=== PATIENT | male | born 1955 | race Caucasian/White ===

== ENCOUNTER 2018-09-02 17:28 | Observation (INO) | payer OTHER, SELFPAY ==
[2018-09-02] VITALS (12 sets, daily range): BP systolic 88–150; BP diastolic 54–92; PULSE 61–91; RESP 12–18; TEMP 36.4–37.1; O2SAT 92–100; BMI 32.3
--- NOTE | 2018-09-02 | PATH_ITS ---
[facility] Accession Number: [id number] . 01 Material submitted: . appendix - APPENDIX . 02 Diagnosis: Appendix, Appendectomy: Acute suppurative appendicitis with serositis. No evidence of dysplasia or malignancy. MRV/09/05/2018 . 02 Electronically signed: . Loan Wilkerson MD, Pathologist NPI- [id number] . 01 Gross description: . Received in formalin, labeled appendix, is an intact appendix (length-11.2 cm, diameter-1.5 cm) with pale carter-ibrahim smooth shiny serosa and attached mesoappendix (up to 2.2 cm in depth). The resection margin is received opened. The lumen contains carter-ibrahim solid paste-like material. The wall is up to 0.2 cm thick. No nodules, masses or lesions are identified. The resection margin is inked black. Section code: (A1) resection margin en face and three additional customer support representative sections; (A2) two customer support representative serial sections; (A3) one-half of the bivalved tip. ([id number]) /MRV . 02 Pathologist provided ICD-10: K35.80 . 02 CPT . 882154 Performed at: 01 [facility] [address] [facility], [place], [place] [id number] MD William Lagos MD Phone: [phone] Performed at: 02 [facility] [address] [place], [place] [id number] MD Loan Wilkerson MD Phone: [phone]
[2018-09-02 17:59] LABS: Add Manual Diff / Slide Review NO; Basophils Absolute Auto 100 /uL (0-100); Basophils Percent Auto 0.4 % (0-2); Eosinophils Absolute Auto 0 /uL (0-450); Eosinophils Percent Auto 0.1 % (2-4); Hematocrit 42.2 % (41-53); Hemoglobin 14.4 g/dL (13.5-17.5); Lymphocytes Absolute Auto 900 /uL (1100-4500); Lymphocytes Percent Auto 5.9 % (25-40); Mean Corpuscular HGB Conc 34.1 % (30-36); Mean Corpuscular Hemoglobin 30.7 PG (26-34); Monocytes Absolute Auto 1100 /uL (0-900); Monocytes Percent Auto 7.3 % (3-14); Neutrophils Absolute Auto 13000 /uL (1500-7000); Neutrophils Percent Auto 86.3 % (50-75); Platelet Count 293 X10^3/uL (150-400); Red Blood Cell Count 4.69 X10^6/uL (4.5-5.9); Red Cell Distribution Width 13.3 % (11.6-14.8)
--- NOTE | 2018-09-02 18:00 | ED_ITS ---
HPI - Abdominal Pain General Chief Complaint: Abdominal Pain Stated Complaint: constant RLQ pain since 5 am Time Seen by Provider: 09/02/18 18:00 Source: patient Mode of arrival: ambulatory Limitations: no limitations History of Present Illness HPI narrative: Otherwise healthy 62-year-old male here for evaluation of abdominal pain. Patient states that earlier today he started to have generalized abdominal pain. He stated lasted several hours. Had episodes where he felt like he had to have a bowel movement but could not. Also had several episodes of vomiting. He states the pain then went away however returned a short time later localized in the right lower quadrant. Has not had any appetite. He states that the drive here to the emergency department was painful over time he had a bump. No fevers. No prior abdominal surgeries. No testicular pain. Related Data Home Medications Medication Instructions Recorded Confirmed pantoprazole [Protonix] 40 mg PO DAILY 09/02/18 09/02/18 Previous Rx's Medication Instructions Recorded bupropion HCl [Wellbutrin SR] 150 mg PO QDAY #30 tab 09/07/16 Allergies Allergy/AdvReac Type Severity Reaction Status Date / Time No Known Drug Allergies Allergy Verified 09/02/18 17:37 Review of Systems Constitutional Denies fever(s) Cardiovascular Denies chest pain and Denies dyspnea Respiratory Denies dyspnea Gastrointestinal Gastrointestinal: Denies change in stool character, Reports diarrhea and Reports vomiting Genitourinary Denies dysuria, Denies flank pain and Denies testicular pain Musculoskeletal Denies myalgias and Denies arthralgias Integumentary/Breasts Denies rash Neurologic Denies behavioral changes Psychiatric Denies behavioral changes Hematologic/Lymphatic Denies easy bleeding and Denies easy bruising [facility] Medical History Patient denies medical problems (Acute) Surgical History Status post colonoscopy Status post endoscopy Social History household members: spouse Smoking Status: Former smoker alcohol intake: current Social History household members: spouse Smoking Status: Former smoker alcohol intake: current Exam Initial Vital Signs Initial Vital Signs: Vital Signs Temperature 98.5 F 09/02/18 17:33 Pulse Rate 91 H 09/02/18 17:33 Respiratory Rate 16 09/02/18 17:33 Blood Pressure 150/92 H 09/02/18 17:33 Pulse Oximetry 100 09/02/18 17:33 Const General: cooperative, comfortable, well developed, well groomed and No acute distress Orientation: alert, awake and oriented x3 HENMT Head: normal to inspection and normocephalic Resp Effort & Inspection: normal respiratory effort Auscultation: clear to auscultation bilaterally Cardio Rate: regular rate Rhythm: regular rhythm GI Inspection: non-distended Palpation: soft, No firm and tender (Right lower quadrant with rebound and guarding) External: circumcised Penis: normal penis Scrotum: scrotum normal and cremasteric reflex present Testes: normal and testicular lie normal Skin Lesions: no lesions Rashes: no rashes Neuro General: alert, awake and oriented x3 Cognition: normal cognition Speech: speech normal Extrem General: normal to inspection and capillary refill normal Psych Appearance: grossly normal and well kempt Course Orders Ordered: ED Orders 09/02/18 17:52 Complete Blood Count AUTO DIFF Stat Comprehensive Metabolic Panel Stat Lipase Stat Partial Thromboplastin Time Stat Prothrombin Time INR Stat 09/02/18 18:09 CT abdomen pelvis w con Stat 09/02/18 18:49 EKG-12 Lead Stat 09/02/18 21:35 Wound Culture and Gram Stain Routine Acetaminophen (Tylenol) 650 mg PO Q6HR PRN PRN Reason: As Needed for Fever/Mild Pain Enoxaparin Sodium (Lovenox) 40 mg SUBCUT DAILY [facility] Lactated Ringer's (Lactated Ringers) 1,000 mls @ 84 mls/hr IV NOW ONE Stop: 09/03/18 08:35 Last Admin: 09/02/18 20:35 Dose: 84 mls/hr Dextrose/Sodium Chloride (Dextrose 5%-0.45% Ns) 1,000 mls @ 100 mls/hr IV CONT [facility] Ketorolac Tromethamine (Toradol) 15 mg IV Q6H [facility] Stop: 09/07/18 21:26 Morphine Sulfate (Morphine) 2 mg IV Q4HR PRN PRN Reason: Pain, Moderate (4-6) Oxycodone/Acetaminophen (Percocet 5/325) 1 tab PO Q4HR PRN PRN Reason: Pain, Moderate (4-6) Pantoprazole Sodium (Protonix) 40 mg PO DAILY [facility] Ranitidine HCl (Zantac) 150 mg PO BID NIRU Discontinued Medications Bacitracin (Bacitracin) 50,000 unit IRR NOW ONE Stop: 09/02/18 20:58 Last Admin: 09/02/18 20:58 Dose: 50,000 unit Bupivacaine HCl/Epinephrine Bitart (Sensorcaine 0.5% W/ Epi (Pf)) 30 ml INJ NOW ONE Stop: 09/02/18 20:58 Last Admin: 09/02/18 20:58 Dose: 20 ml Fentanyl (Sublimaze) 50 mcg IV Q5MIN PRN PRN Reason: Pain, Moderate (4-6) Last Admin: 09/02/18 21:50 Dose: 50 mcg Admin: 09/02/18 21:45 Dose: 50 mcg Hydromorphone HCl (Dilaudid) 0.5 mg IV Q5MIN PRN PRN Reason: Pain, Moderate (4-6) Sodium Chloride (Normal Saline 0.9%) 1,000 mls @ 1,000 mls/hr IV BOLUS ONE Stop: 09/02/18 19:09 Last Infusion: 09/02/18 19:32 Dose: 0 mls/hr Admin: 09/02/18 18:46 Dose: 1,000 mls/hr Piperacillin/Tazobactam/Dextrose (Zosyn) 3.375 gm in 50 mls @ 100 mls/hr IV NOW ONE Stop: 09/02/18 19:33 Last Infusion: 09/02/18 20:28 Dose: 0 mls/hr Infusion: 09/02/18 19:51 Dose: 100 mls/hr Admin: 09/02/18 19:32 Dose: 100 mls/hr Sodium Chloride (Normal Saline 0.9%) 1,000 mls @ 125 mls/hr IV CONT NIRU Last Infusion: 09/02/18 19:50 Dose: 125 mls/hr Admin: 09/02/18 19:30 Dose: 125 mls/hr Acetaminophen (Ofirmev) 1,000 mg in 100 mls @ 400 mls/hr IV NOW ONE Stop: 09/02/18 21:28 Last Infusion: 09/02/18 21:15 Dose: 0 mls/hr Admin: 09/02/18 21:08 Dose: 400 mls/hr Metoclopramide HCl (Reglan) 10 mg IV NOW PRN PRN Reason: Nausea And Vomiting Neomycin/Polymyxin/Bacitracin (Neosporin) 1 each TOP NOW ONE Stop: 09/02/18 20:58 Last Admin: 09/02/18 20:59 Dose: 1 each Ondansetron HCl (Zofran) 4 mg IV NOW PRN PRN Reason: Nausea And Vomiting Ondansetron HCl (Zofran) 4 mg IV Q4HR PRN PRN Reason: Nausea And Vomiting Oxycodone HCl (Percolone) 5 mg PO Q30MIN PRN PRN Reason: Mild or moderate pain Vital Signs - 8 hr 09/02/18 17:33 09/02/18 19:12 09/02/18 21:25 Temperature 98.5 F 98.6 F Pulse Rate 91 H 79 65 Respiratory Rate 16 18 12 Blood Pressure 150/92 H 88/58 L Blood Pressure [Left Arm] 128/74 Pulse Oximetry 100 95 92 09/02/18 21:30 09/02/18 21:35 09/02/18 21:45 Temperature 98.6 F 98.6 F 98.6 F Pulse Rate 64 74 70 Respiratory Rate 12 12 18 Blood Pressure 89/57 L 98/64 105/68 Blood Pressure [Left Arm] Pulse Oximetry 96 94 93 09/02/18 21:55 09/02/18 22:00 09/02/18 22:05 Temperature 98.6 F 98.7 F 98.6 F Pulse Rate 72 76 72 Respiratory Rate 18 18 18 Blood Pressure 100/54 L 102/56 L 113/63 Blood Pressure [Left Arm] Pulse Oximetry 93 96 96 09/02/18 22:15 Temperature 97.6 F Pulse Rate 69 Respiratory Rate 14 Blood Pressure 125/73 Blood Pressure [Left Arm] Pulse Oximetry 96 MDM - Abdominal Pain Lab Data Attestation: I reviewed the patient's lab results. Result diagrams: 09/02/18 17:52 09/02/18 17:52 Lab Results 09/02/18 09/02/18 09/02/18 Range/Units 17:52 17:52 17:52 WBC 15.0 H (4.5-11.0) X10^3/uL RBC 4.69 (4.5-5.9) X10^6/uL Hgb 14.4 (13.5-17.5) g/dL Hct 42.2 (41-53) % MCV 90.0 (80-100) fL MCH 30.7 (26-34) PG MCHC 34.1 (30-36) % RDW 13.3 (11.6-14.8) % Plt Count 293 (150-400) X10^3/uL Neut % (Auto) 86.3 H (50-75) % Lymph % (Auto) 5.9 L (25-40) % [place] % (Auto) 7.3 (3-14) % Eos % (Auto) 0.1 L (2-4) % Baso % (Auto) 0.4 (0-2) % Neut # (Auto) 41810 H (9660-0209) /uL Lymph # (Auto) 900 L (6943-1755) /uL [place] # (Auto) 1100 H (0-900) /uL Eos # (Auto) 0 (0-450) /uL Baso # (Auto) 100 (0-100) /uL PT 12.3 (10.1-12.7) SECONDS INR 1.1 (0.9-1.3) APTT 34 (26.4-36.2) SECONDS Sodium 138 (137-145) mmol/L Potassium 3.8 (3.4-5.1) mmol/L Chloride 100 (98-107) mmol/L Carbon Dioxide 28 (22-32) mmol/L BUN 12 (9-20) mg/dL Creatinine 0.90 (0.66-1.25) mg/dL Estimated GFR > 60.0 (>60) mL/min BUN/Creatinine Ratio 13.3 (6-22) Glucose 105 (80-110) mg/dL Calcium 9.2 (8.4-10.2) mg/dL Total Bilirubin 0.8 (0.2-1.3) mg/dL AST 29 (17-59) IU/L ALT 40 (21-72) IU/L Alkaline Phosphatase 64 (38-126) U/L Total Protein 7.5 (6.3-8.2) g/dL Albumin 4.7 (3.5-5.0) g/dL Globulin 2.8 (1.7-4.1) g/dL Albumin/Globulin Ratio 1.7 (1.0-2.8) Lipase 33 (23-300) U/L Point of care testing: Urine Dip Bedside Urine Glucose Negative Bedside Urine Bilirubin - Negative Bedside Urine Ketone - Negative Urine Specific [place] 1.015 Bedside Urine Occult Blood - Negative Bedside Urine pH 6.0 Bedside Urine Protein - Negative Bedside Urine Urobilinogen - Negative Bedside Urine Nitrite - Negative Bedside Urine Leukocytes - Negative Esterase Imaging Data CT scan - abdomen: Radiologist's impression: [address] [address] [address] Scan Report Signed Patient: [facility]#: [id number] : 6Acct:[id number] Age/Sex: 62 / MDate of Service: 09/02/18 Loc: ED Accession Number: [id number] Procedure: CT abdomen pelvis w con Ordering Provider: Kaleb Ochoa D.O. PROCEDURE: CT ABDOMEN PELVIS W CON INDICATIONS: Right-sided abdominal pain concern for appy TECHNIQUE: After the administration of intravenous contrast, 5 mm thick sections acquired from the diaphragm to the symphysis. 5 mm coronal and sagittal reformats were acquired. For radiation dose reduction, the following was used: automated exposure control, adjustment of mA and/or kV according to patient size. COMPARISON: None. FINDINGS: Image quality: Excellent. ABDOMEN: Lung bases: Lung bases are clear. Heart size is normal. Solid organs: Mild hepatic fatty infiltration. Liver is normal in size and enhancement. Gallbladder contains gallstones. Biliary system is non dilated. Pancreas enhances normally. Spleen is normal in size and enhancement. No adrenal nodules. Kidneys demonstrate normal size and enhancement, without hydronephrosis. Peritoneum and bowel: Appendix is distended measuring up to 1 cm in diameter. There is increased appendiceal wall enhancement and periappendiceal stranding consistent with acute appendicitis. There is a trace amount of free fluid in the right lower quadrant. No fluid collections to suggest abscess. No free air. Bowel loops demonstrate normal caliber. A few colonic diverticular noted. Nodes and vessels: No retroperitoneal or mesenteric adenopathy by size criteria. Aorta and inferior vena cava are normal in size. Miscellaneous: Tiny fat-containing umbilical hernia is noted. PELVIS: Genitourinary: Bladder wall thickness is normal. Miscellaneous: No inguinal hernias or adenopathy. Bones: No suspicious bony lesions. No vertebral body compression fractures. IMPRESSION: 1. Acute uncomplicated appendicitis. 2. Cholelithiasis. 3. Mild diverticulosis without active diverticulitis. Dictated by: Chris Painter M.D. on 09/02/2018 at 18:46 Approved by: Chris Painter M.D. on 09/02/2018 at 18:51 ECG Data Attestation: I personally reviewed and interpreted this ECG as follows: Prior ECG tracings: not available for review Interpretation: Sinus rhythm Ventricular rate is 76 Normal axis Normal QRS Normal QTC No ST T wave changes MDM Narrative Medical decision making narrative: Patient history and physical exam consistent with appendicitis. Also has a leukocytosis. CT scan confirmed appendicitis. Discussed the case with Dr. De Jesus which General surgery who will take the patient to the operating room. Antibiotics started per his request. Informed the patient of his diagnosis. He expressed understanding and agreement plan. Discharge Plan Departure Patient Disposition: Admitted as Observation Clinical Impression: Acute appendicitis Qualifiers: Acute appendicitis type: unspecified acute appendicitis type Qualified Code(s): K35.80 - Unspecified acute appendicitis Discharge Date/Time: 09/02/18 19:51 Interventions: ED Discharge Assessment Last Done: 09/02/18 19:47 Admit Date/Time: 09/02/18 19:08 Admit Provider: Jp De Jesus
[2018-09-02 18:05] LABS: INR 1.1 (0.9-1.3); Prothrombin Time 12.3 SECONDS (10.1-12.7)
[2018-09-02 18:07] LABS: PTT Partial Thromboplastin Tim 34 SECONDS (26.4-36.2)
[2018-09-02 18:09] LABS: Alanine Aminotransferase 40 IU/L (21-72); Albumin 4.7 g/dL (3.5-5.0); Albumin Globulin Ratio 1.7 (1.0-2.8); Alkaline Phosphatase 64 U/L (38-126); Aspartate Aminotransferase 29 IU/L (17-59); BUN Creatinine Ratio 13.3 (6-22); Bilirubin Total 0.8 mg/dL (0.2-1.3); Blood Urea Nitrogen 12 mg/dL (9-20); Calcium 9.2 mg/dL (8.4-10.2); Carbon Dioxide 28 mmol/L (22-32); Chloride 100 mmol/L (98-107); Estimated Glomerular Filt Rate > 60.0 mL/min (>60); Globulin 2.8 g/dL (1.7-4.1); Glucose 105 mg/dL (80-110); HEMOLYSIS < 15 (0-50); Lipase 33 U/L (23-300); Potassium 3.8 mmol/L (3.4-5.1); Sodium 138 mmol/L (137-145); Total Protein 7.5 g/dL (6.3-8.2)
--- NOTE | 2018-09-02 18:09 | DI.CT.S_ITS ---
PROCEDURE: CT ABDOMEN PELVIS W CON INDICATIONS: Right-sided abdominal pain concern for appy TECHNIQUE: After the administration of intravenous contrast, 5 mm thick sections acquired from the diaphragm to the symphysis. 5 mm coronal and sagittal reformats were acquired. For radiation dose reduction, the following was used: automated exposure control, adjustment of mA and/or kV according to patient size. COMPARISON: None. FINDINGS: Image quality: Excellent. ABDOMEN: Lung bases: Lung bases are clear. Heart size is normal. Solid organs: Mild hepatic fatty infiltration. Liver is normal in size and enhancement. Gallbladder contains gallstones. Biliary system is non dilated. Pancreas enhances normally. Spleen is normal in size and enhancement. No adrenal nodules. Kidneys demonstrate normal size and enhancement, without hydronephrosis. Peritoneum and bowel: Appendix is distended measuring up to 1 cm in diameter. There is increased appendiceal wall enhancement and periappendiceal stranding consistent with acute appendicitis. There is a trace amount of free fluid in the right lower quadrant. No fluid collections to suggest abscess. No free air. Bowel loops demonstrate normal caliber. A few colonic diverticular noted. Nodes and vessels: No retroperitoneal or mesenteric adenopathy by size criteria. Aorta and inferior vena cava are normal in size. Miscellaneous: Tiny fat-containing umbilical hernia is noted. PELVIS: Genitourinary: Bladder wall thickness is normal. Miscellaneous: No inguinal hernias or adenopathy. Bones: No suspicious bony lesions. No vertebral body compression fractures. IMPRESSION: 1. Acute uncomplicated appendicitis. 2. Cholelithiasis. 3. Mild diverticulosis without active diverticulitis. Dictated by: Chris Painter M.D. on 09/02/2018 at 18:46 Approved by: Chris Painter M.D. on 09/02/2018 at 18:51
[2018-09-02] MEDS: SODIUM CHLORIDE 0.9% 1,000 ML 1000 ML IV (18:46)
[2018-09-02] MEDS: SODIUM CHLORIDE 0.9% 1,000 ML 125 ML IV (19:30)
[2018-09-02] MEDS: PIPERACILLIN-TAZO 3.375 GM/50 ML FROZ.PIGGY IV (19:32)
--- NOTE | 2018-09-02 20:03 | P.HP_ITS ---
History of Present Illness Date Patient Seen: 09/02/18 Time Patient Seen: 20:00 Chief complaint: constant RLQ pain since 5 am Narrative: 62-year-old white male with persistent abdominal pain today now radiating into the right lower quadrant. he has been evaluated in the emergency room is 15,000 white count and a CT scan consistent with uncomplicated acute appendicitis. Patient has received a dose of Zosyn and is being prepared for urgent appendectomy Patient History Surgical History Status post colonoscopy Status post endoscopy Social History Smoking Status: Never smoker Family & Social History Safety & Behavioral: Feels Safe in Current Yes Environment Been Physically Hurt or No Threatened By a Person Tobacco & Substance use: Smoking Status Never smoker alcohol intake frequency 0-2 drinks per day Substance Use Type does not use Meds Home Medications Medication Instructions Recorded Confirmed Type bupropion HCl [Wellbutrin SR] 150 mg PO QDAY #30 tab 09/07/16 Rx pantoprazole [Protonix] 40 mg PO DAILY 09/02/18 09/02/18 History Allergies Allergy/AdvReac Type Severity Reaction Status Date / Time No Known Drug Allergies Allergy Verified 09/02/18 17:37 Review of Systems Review of Systems All systems reviewed & are unremarkable except as noted in HPI and below Exam Vital Signs (past 8 hours): - 09/02/18 17:33 09/02/18 19:12 Temperature 98.5 F Pulse Rate 91 H 79 Respiratory Rate 16 18 Blood Pressure 150/92 H Blood Pressure [Left Arm] 128/74 Pulse Oximetry 100 95 Oxygen Delivery Method Room Air Narrative Exam Narrative: Patient is afebrile. Is alert and oriented. complaining of right lower quadrant abdominal pain. Lungs are clear with no rales or wheezes Heart regular rhythm no murmur Abdomen shows exquisite right lower quadrant tenderness with guarding and rebound tenderness. there is positive Rovsing sign. Remaining physicals unremarkable. Objective Labs Result Diagrams: 09/02/18 17:52 09/02/18 17:52 Labs: Laboratory Results - last 24 hr 09/02/18 09/02/18 09/02/18 17:52 17:52 17:52 WBC 15.0 H RBC 4.69 Hgb 14.4 Hct 42.2 MCV 90.0 MCH 30.7 MCHC 34.1 RDW 13.3 Plt Count 293 Neut % (Auto) 86.3 H Lymph % (Auto) 5.9 L [place] % (Auto) 7.3 Eos % (Auto) 0.1 L Baso % (Auto) 0.4 Neut # (Auto) 78537 H Lymph # (Auto) 900 L [place] # (Auto) 1100 H Eos # (Auto) 0 Baso # (Auto) 100 PT 12.3 INR 1.1 APTT 34 Sodium 138 Potassium 3.8 Chloride 100 Carbon Dioxide 28 BUN 12 Creatinine 0.90 Estimated GFR > 60.0 BUN/Creatinine Ratio 13.3 Glucose 105 Calcium 9.2 Total Bilirubin 0.8 AST 29 ALT 40 Alkaline Phosphatase 64 Total Protein 7.5 Albumin 4.7 Globulin 2.8 Albumin/Globulin Ratio 1.7 Lipase 33 Assessment & Plan Assessment & Plan narrative: Patient has clinical and imaging findings of acute uncomplicated appendicitis has received a dose of Zosyn and is being prepared for appendectomy I have explained the nature of the illness and surgical procedure that and the patient and his have no further questions and agree
--- NOTE | 2018-09-02 20:33 | PC.NURSE ---
surgery 2019 pt transported off of unit to surgical area.
[2018-09-02] MEDS: LACTATED RINGERS 1,000 ML 84 ML IV (20:35)
--- NOTE | 2018-09-02 20:42 | SUR.HOLD ---
pt to pacu w acute care RN- Anesthesia MD interview completed , consent obtained, Iv fluids started and pt moved directly to OR
[2018-09-02] MEDS: BUPIVACAINE 0.5% W/ EPI (PF) VIAL 30 ML INJ (20:58)
[2018-09-02] MEDS: BACITRACIN 50,000 UNIT VIAL 50000 UNIT IRR (20:58)
[2018-09-02] MEDS: NEOMYCIN/POLYMYXIN/BACITRA UD OINT 1 EACH TOP (20:59)
[2018-09-02] MEDS: ACETAMINOPHEN IV 1,000 MG/100 ML VIAL 400 MG IV (21:08)
--- NOTE | 2018-09-02 21:22 | PM.OP.1 ---
Operative Date/Time/Diagnoses Date of procedure: 09/02/18 Time of procedure: 21:22 Pre-op diagnosis: Acute uncomplicated appendicitis Post-op diagnosis: same Procedure & Clinicians Procedure: Appendectomy Same procedure as scheduled: Yes Indications: Acute appendicitis Surgeon: Jp De Jesus Click Yes if Unassisted: Yes Anesthesia Type: General Operative Notes Findings: Patient had acute uncomplicated appendicitis with gangrenous changes near the base the appendix which was not perforated Closure Type: primary Specimen(s): other (Appendix and cultures) Estimated Blood Loss (mL): 50 Blood products transfused: none Procedure in detail: The patient was properly identified during surgical pause under general endotracheal anesthetic. Prepped and draped in sterile fashion exposure of the lower abdomen. a standard Jose G-Fabian incision was made over McBurney's point. The oblique muscles split in the grid iron fashion exposing the peritoneum which was entered so as to avoid injury to the underlying structures. The cecum was rotated in the wound. The appendix was elevated it was acutely inflamed coated with fibrin in the base the appendix was a bit necrotic although no evidence of perforation was there. The mesoappendix divided between clamps the vessels ligated with 2 0 Vicryl there was excellent hemostasis the base the appendix was closed right at the cecal junction with a TA 30? stapler the staple line was intact. the stump of the appendix was very likely coagulated with Bovie. Cultures of the appendix were taken. Pelvis irrigated with a L of bacitracin saline and aspirated dry there was no bleeding and no purulence. Peritoneum closed with a running 2 0 Vicryl. fascia closed with 1. Maxon. The subcu irrigated with bacitracin saline. the skin was stapled and sterile dressings applied. local anesthesia was administered prior to wound closure. procedures very well tolerated. Complications: none Condition: stable Disposition: PACU
[2018-09-02] MEDS: fentaNYL 100 MCG/2 ML INJ 50 MCG IV ×2 (21:45→21:50)
--- NOTE | 2018-09-02 22:35 | PC.NURSE ---
post op pt to AC from PACU at 2205. VSS. alert and oriented. was having double vision but states has now resolved. bulky dressing to RL abdomen CDI. tolerating water without nausea. LR infusing at 84cc/hr without difficulty. SCDs on. oriented to post op care plan. present at bedside, attentive to needs. pt instructed to notify RN/INDUSTRIAL PSYCHOLOGY PROFESSOR prior to activity for assist.
[2018-09-02] MEDS: DEXTROSE 5%-0.45% NS 1,000 ML 100 ML IV (23:00)
[2018-09-02] MEDS: KETOROLAC 15 MG/ML VIAL IV (23:01)
[2018-09-03 00:15] VITALS: BP 105/68; PULSE 76; RESP 16; TEMP 36.7; O2SAT 94
[2018-09-03 01:30] VITALS: BP 114/63; PULSE 75; RESP 16; TEMP 36.6; O2SAT 95
[2018-09-03 04:56] VITALS: BP 136/68; PULSE 70; RESP 16; TEMP 36.8; O2SAT 95
[2018-09-03] MEDS: KETOROLAC 15 MG/ML VIAL IV (04:57)
[2018-09-03 07:44] VITALS: BP 125/66; PULSE 76; RESP 16; TEMP 36.4; O2SAT 95
--- NOTE | 2018-09-03 08:45 | P.PN_ITS ---
Subjective Date Patient Seen: 09/03/18 Time Patient Seen: 08:39 Interval history: Feeling well, pain controlled No flatus no BM tolerated liquids yet to ambulated Exam Vital Signs (past 8 hours): - 09/03/18 01:30 09/03/18 04:56 09/03/18 07:44 Temperature 97.9 F 98.2 F 97.6 F Pulse Rate 75 70 76 Respiratory Rate 16 16 16 Blood Pressure 114/63 136/68 125/66 Pulse Oximetry 95 95 95 Oxygen Delivery Method Room Air Oxygen Flow Rate 0 Narrative Exam Narrative: well appearing breathing easily on on RA RRR abd soft, minimally distended, minimally tender, dressings dry warm periphery Objective Labs Result Diagrams: 09/02/18 17:52 09/02/18 17:52 Labs: Laboratory Results - last 24 hr 09/02/18 09/02/18 09/02/18 17:52 17:52 17:52 WBC 15.0 H RBC 4.69 Hgb 14.4 Hct 42.2 MCV 90.0 MCH 30.7 MCHC 34.1 RDW 13.3 Plt Count 293 Neut % (Auto) 86.3 H Lymph % (Auto) 5.9 L [place] % (Auto) 7.3 Eos % (Auto) 0.1 L Baso % (Auto) 0.4 Neut # (Auto) 79124 H Lymph # (Auto) 900 L [place] # (Auto) 1100 H Eos # (Auto) 0 Baso # (Auto) 100 PT 12.3 INR 1.1 APTT 34 Sodium 138 Potassium 3.8 Chloride 100 Carbon Dioxide 28 BUN 12 Creatinine 0.90 Estimated GFR > 60.0 BUN/Creatinine Ratio 13.3 Glucose 105 Calcium 9.2 Total Bilirubin 0.8 AST 29 ALT 40 Alkaline Phosphatase 64 Total Protein 7.5 Albumin 4.7 Globulin 2.8 Albumin/Globulin Ratio 1.7 Lipase 33 Assessment & Plan Assessment & Plan narrative: 62 yo man POD1 after open appendectomy for non-perforated appendicitis, now well. Lives [place] - not yet ready for discharge Plan: Trial of diet Ambulate PO pain regiment Starting hm buproprion no futher abx enoxaparin for DVT proph May discharge later today in PM vs tomorrow depending on pt condition. Due to remote home needs to be ambulating well and tolerating POs quite well. Quality VTE Deep Vein Thrombosis/Pulmonary Embolism Present on Admission: No
[2018-09-03] MEDS: PANTOPRAZOLE 20 MG TABLET 40 MG PO (09:39)
[2018-09-03] MEDS: ENOXAPARIN 40 MG/0.4 ML SYRINGE SUBCUT (09:39)
[2018-09-03] MEDS: buPROPion SR 150 MG TAB PO (09:39)
[2018-09-03] MEDS: POLYETHYLENE GLYCOL 3350 17 GM POWD.PACK PO (09:39)
[2018-09-03 10:11] VITALS: O2SAT 95
[2018-09-03 12:05] VITALS: BP 132/79; PULSE 84; RESP 16; TEMP 37; O2SAT 97
[2018-09-03] MEDS: LACTOBACILLUS ACIDOPHILUS TABLET 1 EACH PO (13:05)
[2018-09-03] MEDS: ACETAMINOPHEN 325 MG TABLET 975 MG PO (13:06)
--- NOTE | 2018-09-03 15:42 | CM.DANOTE ---
Discharge Planning/Care Management DCP: assement: case received, EMR reviewed. Discussed in Team Rounds. Pt is a 62 year old male who admitted to care of General Surgery last night. Was taken to surgery for an open appendectomy/urgently by Dr. De Jesus. Payer: [facility]. PCP: Kaleb Wilson. Pt lives in the [facility]: [place] with his spouse. Pt was noted throughout the day to be mobilizing in the halls. Went to room now to check in with pt as POC was for pt to go home later this evening if he was doing extremely well or to stay until tomorrow. Pt was found standing in the room, discussing the details of his d/c with the rounding surgeon and with RN going over final details of the d/c paperwork. RN confirmed pt had done very well and was ok'd for the d/c home this afternoon. CM Discharge Assessment Start: 09/03/18 15:41 Freq: Status: Active Protocol: Document 09/03/18 15:41 ITV (Rec: 09/03/18 15:42 ITV [id number]) Discharge Planning Assessment Advance Directives? Yes History Provided By Patient Medical Record Prior Living Arrangements House Household Members spouse Independent with ADL's Yes Is patient alert and oriented? Yes Review Status In Process
--- NOTE | 2018-09-03 17:05 | PC.NURSE ---
1610 - Dr. Oconnor in to see pt. Educated to discharge instructions and follow up. RX provided. Discharge orders received. IV d/c'd from left AC. 1630 - RX provided to pt to be filled at [facility] prior to discharge. Priority boarding pass given to pt by Lilly RN. Reviewed discharge instructions and medications. Pt denies questions. Reinforced Weight lift limit of 15lbs. Written instructions provided. 1700 - Pt discharged via wheelchair with Constantino WHITFIELD. Personal belongings, instructions and RX in hand.
--- NOTE | 2018-09-14 11:24 | PC.NURSE ---
late entry: Sodium chloride infusion stopped 09/02 22:33 Lactated Ringers infusion stopped 09/02 22:59 Dextrose 5%-0.45% infusion stopped 09/03 15:47
== END 2018-09-03 17:05 | disposition home or self-care (01) ==
LOC: ED 19:02 → AC 19:09
PROVIDERS: Emergency Medicine; Admitting Provider Surgery; Emergency Provider Emergency Medicine; PCP Family Medicine; Visit Provider Surgery
PROC: (CPT 44950; principal; 2018-09-02 20:20)
DX: K35.80 Unspecified acute appendicitis (principal); R10.11 Right upper quadrant pain
CPT/HCPCS: 44950; 36591; 74177; 80053; 81003; 83690; 85025; 85610; 85730; 87070; 87075; 87205; 93005; 94762; 96361; 96365; 96372; 96375; 99219; 99283; 99285; G0378; J0131; J1100; J1650; J1885; J2250; J2405; J2543; J2704; J3010; Q9967

== ENCOUNTER → 2020-07-09 11:36 | Outpatient (CLI) | payer OTHER, SELFPAY ==
[2018-10-23 13:55] VITALS: BMI 32.3
[2020-07-09 19:02] LABS: Add Manual Diff / Slide Review NO; Basophils Absolute Auto 100 /uL (0-100); Basophils Percent Auto 0.7 % (0-2); Eosinophils Absolute Auto 100 /uL (0-450); Eosinophils Percent Auto 1.8 % (2-4); Hemoglobin 13.6 g/dL (13.5-17.5); Lymphocytes Absolute Auto 1000 /uL (1100-4500); Lymphocytes Percent Auto 13.9 % (25-40); Mean Corpuscular HGB Conc 34.9 % (30-36); Mean Corpuscular Hemoglobin 31.6 PG (26-34); Mean Corpuscular Volume 90.6 fL (80-100); Monocytes Absolute Auto 600 /uL (0-900); Monocytes Percent Auto 8.3 % (3-14); Neutrophils Absolute Auto 5400 /uL (1500-7000); Neutrophils Percent Auto 75.3 % (50-75); Platelet Count 275 X10^3/uL (150-400); Red Cell Distribution Width 13.3 % (11.6-14.8); White Blood Cell Count 7.2 X10^3/uL (4.5-11.0)
[2020-07-09 19:11] LABS: Alanine Aminotransferase 46 IU/L (<50); Albumin 4.1 g/dL (3.5-5.0); Albumin Globulin Ratio 1.6 (1.0-2.8); Alkaline Phosphatase 70 U/L (38-126); Aspartate Aminotransferase 33 IU/L (17-59); Bilirubin Total 0.7 mg/dL (0.2-1.3); Blood Urea Nitrogen 17 mg/dL (9-20); Calcium 9.3 mg/dL (8.4-10.2); Carbon Dioxide 28 mmol/L (22-32); Chloride 102 mmol/L (98-107); Estimated Glomerular Filt Rate > 60.0 mL/min (>60); Globulin 2.6 g/dL (1.7-4.1); Glucose 90 mg/dL (80-110); HEMOLYSIS < 15 (0-50); Potassium 4.1 mmol/L (3.4-5.1); Sodium 137 mmol/L (137-145); Total Protein 6.7 g/dL (6.3-8.2)
[2020-07-09 19:19] LABS: Erythrocyte Sedimentation Rate 13 MM/HR (0-15)
[2020-07-09 20:12] LABS: Folate 7.5 ng/mL (2.76-20.0); Vitamin B12 320 pg/mL (239-931)
[2020-07-10 14:03] LABS: C-Reactive Protein Quant < 0.5 mg/dL (<1.0)
[2020-07-11 08:08] LABS: PSA, Total 0.2 ng/mL (0.0-4.0)
[2020-07-13 11:10] LABS: Methylmalonic Acid,Serum 181 nmol/L (0-378)
== END ==
PROVIDERS: PCP Family Medicine; Visit Provider Family Medicine
DX: I10 Essential (primary) hypertension (principal)
CPT/HCPCS: 80053; 82607; 82746; 83090; 83921; 84153; 84154; 85025; 85651; 86140; G0103

== ENCOUNTER → 2020-08-03 13:10 | Outpatient (CLI) | payer OTHER, SELFPAY ==
[2018-10-23 13:55] VITALS: BMI 32.3
[2020-08-04 01:50] LABS: COVID19 - ORCAS (NP or Nasal) Negative (Negative)
== END ==
PROVIDERS: PCP Family Medicine; Visit Provider Family Medicine
DX: Z20.822 Contact with and (suspected) exposure to COVID-19 (principal)
CPT/HCPCS: U0003

== ENCOUNTER → 2020-08-06 09:40 | Outpatient (CLI) | payer OTHER, SELFPAY ==
[2018-10-23 13:55] VITALS: BMI 32.3
--- NOTE | 2020-08-06 | DI.RAD.S_ITS ---
PROCEDURE: XR CHEST 2V INDICATIONS: Shortness of breath TECHNIQUE: 2 views of the chest were acquired. COMPARISON: None. FINDINGS: Surgical changes and devices: None. Lungs and pleura: Lungs are clear. No pleural effusions or pneumothorax. Mediastinum: Mediastinal contours are normal. Heart size is normal. Bones and chest wall: No suspicious bony abnormalities. Soft tissues appear unremarkable. IMPRESSION: No acute cardiopulmonary disease. Dictated by: Chris Painter M.D. on 08/06/2020 at 11:15 Approved by: Chris Painter M.D. on 08/06/2020 at 11:15
--- NOTE | 2020-08-06 15:00 | PM.TREADMILL ---
Cardiac Stress Test Report Referral & Results Date Patient Seen: 08/06/20 Time Patient Seen: 15:00 Requesting provider: Kaleb Wilson Indication: dyspnea Rest ECG: Sinus rhythm Procedure Note: Standard Arpan protocol, 7:16 mins; 8.1 METS Reduced exercise capacity, LAVONNE +7% Normal hemodynamic response to exercise No chest pain or anginal symptoms Significant dyspnea at peak exercise Nonspecific ST depression in V4-V6 at peak exercise No ectopy Impression: Normal exercise stress test Please note: Actual ECG tracings can be found in the PACS system.
--- NOTE | 2020-08-06 19:15 | DI.NM.S_ITS ---
DATE OF SERVICE: 08/06/2020 PROCEDURE: Exercise perfusion study. INDICATIONS: Shortness of breath, dyspnea on exertion, underlying hypertension and hyperlipidemia. RADIOPHARMACEUTICAL: 26.2 millicurie technetium-99m Myoview IV was injected at stress and 12.2 millicurie technetium-99m Myoview IV was injected at rest. CARDIAC STRESS: The patient underwent exercise perfusion study under the supervision of an attending staff. The patient walked on Arpan protocol for 7 minutes 16 seconds and achieved 96 percent of target heart rate. Baseline blood pressure 132/90. Peak blood pressure 200/90. Baseline EKG revealed sinus rhythm with nonspecific ST changes. During stress, there were some nonspecific ST changes without any convincing significant ischemic changes. No significant arrhythmias. No anginal symptoms. The patient had significant shortness of breath at peak exercise. RAW DATA: There is increased subdiaphragmatic activity. GATED STUDY: Resting LV ejection fraction 63 and stress LV ejection fraction 78 percent without any obvious wall motion abnormalities. Resting end-diastolic volume 114 mL, which is within normal limits. TID ratio 0.74, which is within normal limits. Lung/heart ratio 0.37, which is within normal limits. MYOCARDIAL PERFUSION: Resting supine images revealed small size, mildly decreased perfusion of inferior apex. However, the stress supine and stress prone images revealed normal myocardial perfusion. CONCLUSION: I will call this study a normal myocardial perfusion study with normal myocardial perfusion during stress supine and stress prone images. No convincing ischemia or infarction pattern seen. Diminished exercise tolerance. Functional aerobic impairment positive 7 percent. Mildly hypertensive blood pressure response. No anginal symptoms. The patient felt significant dyspnea at peak exercise. Overall left ventricular function is preserved. JonaHumble - CLAY/natty/priscilla doc#: [id number]/job#: [id number] dd: 08/06/2020 16:38:00 dt: 08/06/2020 18:45:00 DICTATING MD/COPIES TO: Singh Newberry MD COPIES MNE: MOIZ;
== END ==
PROVIDERS: PCP Family Medicine; Referring Provider Family Medicine; Visit Provider Family Medicine
DX: R06.02 Shortness of breath (principal); R06.09 Other forms of dyspnea; R05 Cough; I10 Essential (primary) hypertension; E78.5 Hyperlipidemia, unspecified; Z87.891 Personal history of nicotine dependence
CPT/HCPCS: 71046; 78452; 93017; A9502

== ENCOUNTER → 2020-09-16 14:38 | Outpatient (CLI) | payer OTHER, SELFPAY ==
[2018-10-23 13:55] VITALS: BMI 32.3
--- NOTE | 2020-09-16 14:39 | DI.ECHO.S_ITS ---
[place] [facility]---------+ [facility] +---------+ : : [address] [address] : : : : [id number] : : : : Phone: [phone] Echocardiogram Report + + :Name: SHANNA CASTILLO [place]af[place] Study Date: 09/16/2020 Height: 70 in : :[facility] ReadingLocation: Weight: 225 lb : : Gender: Male BSA: 2.2 m2 : :: 1955 Age: 64 yrs BP: 166/99 mmHg: :Reason For Study: DYSPNEA : : Performed By: Hodan Cohen : :Referring: DARRON GARCIA : + + Interpretation Summary Left ventricular systolic function appears normal with an estimated ejection fraction of 55 to 60% without any focal wall motion abnormality. Left ventricular size and wall thickness are normal. Diastolic function is likely normal with normal filling pressures. The right ventricle appears normal in size and systolic function. Right ventricular systolic pressure and CVP cannot be estimated. Both atria are normal in size. There is mild mitral regurgitation with an anatomically normal valve but no other significant valvular abnormality. The ascending aorta is mildly enlarged. Procedure: A two-dimensional transthoracic echocardiogram with color flow and Doppler was performed. The study quality was technically adequate. There is no prior echocardiogram noted for this patient. The patient was in sinus rhythm with heart rates between 67-81 bpm during the exam. Left Ventricle: The left ventricle appears normal in size, wall thickness, and systolic function without any focal wall motion abnormalities. The ejection fraction is estimated to be 55-60%. Diastolic parameters suggest probable normal left ventricular diastolic function and normal filling pressures. Right Ventricle: The right ventricle is normal in size and function. Atria: Both atria are normal in size. There is no Doppler evidence for an interatrial shunt. Mitral Valve: The mitral valve leaflets appear normal. There is no evidence of stenosis, fluttering, or prolapse. There is mild mitral regurgitation. Aortic Valve: The aortic valve is trileaflet. The aortic valve opens well. There is no aortic valve stenosis. No aortic regurgitation is present. Tricuspid Valve: The tricuspid valve is normal in structure and function. There is mild tricuspid regurgitation. Pulmonary artery pressures cannot be estimated because of the lack of a measurable TR jet velocity. Pulmonic Valve: The pulmonic valve leaflets are thin and pliable; valve motion is normal. There is no pulmonic valvular regurgitation. There is no other significant valvular heart disease. Great Vessels: The aortic root is normal size. The ascending aorta is mildly enlarged. The inferior vena cava was not visualized. Pericardium/ Pleura There is no pericardial effusion. There is no pleural effusion. MMode/2D Measurements & Calculations LVIDd: 5.1 cm LVOT diam: 2.4 cm LVIDs: 3.6 cm Ao root diam: 3.7 cm FS: 28.8 % asc Aorta Diam: 4.0 cm IVSd: 0.95 cm Ao Arch Diam (Prox Trans): 3.0 cm LVPWd: 1.1 cm LV argueta. diameter/BSA (cm/m^2): 2.3 LV sys. diameter/BSA (cm/m^2): 1.7 LA A2 area: 23.2 cm2 RA long axis: 4.6 cm LA A4 area: 18.3 cm2 RA area: 12.6 cm2 LA length (vol): 5.2 cm RA vol: 29.5 ml LA vol: 68.9 ml RA : 13.4 ml/m2 LA vol index: 31.4 ml/m2 RVD1 (basal): 4.1 cm TAPSE: 2.8 cm Doppler Measurements & Calculations Ao V2 max: 121.3 cm/sec LVOT Max Jossue: 97.6 cm/sec Ao V2 mean: 85.8 cm/sec LV V1 max P.8 mmHg Ao max P.9 mmHg LV V1 VTI: 21.2 cm Ao mean P.3 mmHg LENORA(I,D): 3.6 cm2 Ao V2 VTI: 27.4 cm LENORA(V,D): 3.7 cm2 sev ratio: 0.77 LENORA indexed to BSA (cm^2/m^2): 1.6 MV E max jossue: 83.1 cm/sec TR max jossue: 235.5 cm/sec MV A max jossue: 77.5 cm/sec TR max P.2 mmHg MV E/A: 1.1 PA V2 max: 145.6 cm/sec Med Peak E' Jossue: 8.9 cm/sec PA V2 mean: 103.9 cm/sec E/E' med: 9.4 PA mean P.8 mmHg Lat Peak E' Jossue: 11.6 cm/sec PA pr(Accel): 39.6 mmHg E/E' lat: 7.2 E/e' average: 8.3 MV dec time: [facility].[address] [facility] 98.1 ml Reading Physician:05:55 PM
== END ==
PROVIDERS: PCP Family Medicine; Referring Provider Family Medicine; Visit Provider Family Medicine
DX: I08.1 Rheumatic disorders of both mitral and tricuspid valves (principal); I77.89 Other specified disorders of arteries and arterioles; R06.00 Dyspnea, unspecified; R07.89 Other chest pain
CPT/HCPCS: 93306

== ENCOUNTER → 2020-10-28 07:36 | Outpatient (CLI) | payer OTHER, MEDICARE, SELFPAY ==
[2018-10-23 13:55] VITALS: BMI 32.3
[2020-10-28 20:22] LABS: COVID19 - ORCAS (NP or Nasal) Negative (Negative)
== END ==
PROVIDERS: PCP Family Medicine; Visit Provider Physician Assistant
DX: Z20.822 Contact with and (suspected) exposure to COVID-19 (principal)
CPT/HCPCS: C9803; U0003

== ENCOUNTER → 2021-02-01 08:26 | Outpatient (CLI) | payer MEDICARE, OTHER, SELFPAY ==
[2018-10-23 13:55] VITALS: BMI 32.3
[2021-02-01 20:11] LABS: COVID19 - ORCAS (NP or Nasal) Negative (Negative)
== END ==
PROVIDERS: PCP Family Medicine; Referring Provider Family Medicine; Visit Provider Family Medicine
DX: Z20.822 Contact with and (suspected) exposure to COVID-19 (principal)
CPT/HCPCS: C9803; U0003

== ENCOUNTER → 2021-02-10 07:34 | Outpatient (CLI) | payer MEDICARE, OTHER, SELFPAY ==
[2018-10-23 13:55] VITALS: BMI 32.3
[2021-02-10 21:02] LABS: COVID19 - ORCAS (NP or Nasal) Negative (Negative)
== END ==
PROVIDERS: PCP Family Medicine; Visit Provider Physician Assistant
DX: Z20.822 Contact with and (suspected) exposure to COVID-19 (principal)
CPT/HCPCS: C9803; U0003

== ENCOUNTER → 2021-02-16 09:18 | Outpatient (CLI) | payer MEDICARE, OTHER, SELFPAY ==
[2018-10-23 13:55] VITALS: BMI 32.3
[2021-02-16 19:54] LABS: BUN Creatinine Ratio 17.6 (6-22); Blood Urea Nitrogen 21 mg/dL (9-20); Calcium 9.1 mg/dL (8.4-10.2); Carbon Dioxide 29 mmol/L (22-32); Chloride 103 mmol/L (98-107); Estimated Glomerular Filt Rate > 60.0 mL/min (>60); Glucose 122 mg/dL (80-110); HEMOLYSIS < 15 (0-50); Sodium 140 mmol/L (137-145)
== END ==
PROVIDERS: PCP Physician Assistant; Visit Provider Physician Assistant
DX: I10 Essential (primary) hypertension (principal)
CPT/HCPCS: 80048

== ENCOUNTER → 2021-03-02 08:28 | Outpatient (CLI) | payer MEDICARE, OTHER, SELFPAY ==
[2018-10-23 13:55] VITALS: BMI 32.3
[2021-03-02 20:29] LABS: Alanine Aminotransferase 37 IU/L (<50); Albumin 4.3 g/dL (3.5-5.0); Albumin Globulin Ratio 1.7 (1.0-2.8); Alkaline Phosphatase 72 U/L (38-126); Aspartate Aminotransferase 29 IU/L (17-59); BUN Creatinine Ratio 17.4 (6-22); Bilirubin Total 1.1 mg/dL (0.2-1.3); Blood Urea Nitrogen 21 mg/dL (9-20); Calcium 9.3 mg/dL (8.4-10.2); Carbon Dioxide 31 mmol/L (22-32); Chloride 103 mmol/L (98-107); Estimated Glomerular Filt Rate > 60.0 mL/min (>60); Globulin 2.6 g/dL (1.7-4.1); Glucose 98 mg/dL (80-110); HEMOLYSIS < 15 (0-50); Sodium 139 mmol/L (137-145); Total Protein 6.9 g/dL (6.3-8.2)
[2021-03-02 20:36] LABS: Add Manual Diff / Slide Review NO; Basophils Absolute Auto 100 /uL (0-100); Eosinophils Absolute Auto 100 /uL (0-450); Eosinophils Percent Auto 0.9 % (2-4); Hematocrit 40.3 % (41-53); Hemoglobin 14.1 g/dL (13.5-17.5); Lymphocytes Absolute Auto 1100 /uL (1100-4500); Lymphocytes Percent Auto 14.7 % (25-40); Mean Corpuscular HGB Conc 34.9 % (30-36); Mean Corpuscular Hemoglobin 31.4 PG (26-34); Mean Corpuscular Volume 89.9 fL (80-100); Monocytes Absolute Auto 500 /uL (0-900); Monocytes Percent Auto 7.1 % (3-14); Neutrophils Absolute Auto 5500 /uL (1500-7000); Neutrophils Percent Auto 76.3 % (50-75); Platelet Count 269 X10^3/uL (150-400); Red Blood Cell Count 4.48 X10^6/uL (4.5-5.9); Red Cell Distribution Width 13.5 % (11.6-14.8); White Blood Cell Count 7.2 X10^3/uL (4.5-11.0)
[2021-03-02 21:02] LABS: COVID19 - ORCAS (NP or Nasal) Negative (Negative)
[2021-03-06 19:07] LABS: Gastrin 114 pg/mL (0-115)
[2021-03-08 13:26] LABS: Chromogranin A, Serum 593.1 ng/mL (0.0-101.8)
== END ==
PROVIDERS: Internal Medicine Gastroenterology; PCP Physician Assistant; Visit Provider Physician Assistant
DX: C7A.8 Other malignant neuroendocrine tumors (principal); Z20.822 Contact with and (suspected) exposure to COVID-19; J45.909 Unspecified asthma, uncomplicated
CPT/HCPCS: 80053; 82941; 85025; 86316; C9803; U0003

== ENCOUNTER → 2021-04-26 13:00 | Outpatient (CLI) | payer MEDICARE, OTHER, SELFPAY ==
[2018-10-23 13:55] VITALS: BMI 32.3
[2021-04-28 14:36] LABS: Gastrin 80 pg/mL (0-115)
== END ==
PROVIDERS: PCP Physician Assistant
DX: D3A.8 Other benign neuroendocrine tumors (principal)
CPT/HCPCS: 82941

== ENCOUNTER → 2021-06-29 11:06 | Outpatient (CLI) | payer MEDICARE, OTHER, SELFPAY ==
[2018-10-23 13:55] VITALS: BMI 32.3
== END ==
PROVIDERS: PCP Physician Assistant
DX: D3A.8 Other benign neuroendocrine tumors (principal)
CPT/HCPCS: 83497

== ENCOUNTER → 2021-07-20 11:45 | Outpatient (CLI) | payer MEDICARE, OTHER, SELFPAY ==
[2018-10-23 13:55] VITALS: BMI 32.3
[2021-07-31 12:10] LABS: 5-HIAA, UR 24HR 5.9 mg/24 hr (0.0-14.9); 5-HIAA, Urine 5.1 mg/L (Undefined)
== END ==
PROVIDERS: PCP Physician Assistant; Visit Provider Surgery
DX: D3A.8 Other benign neuroendocrine tumors (principal)
CPT/HCPCS: 83497

== ENCOUNTER → 2024-10-03 12:53 | Outpatient (CLI) | payer MEDICARE, OTHER, SELFPAY ==
[2018-10-23 13:55] VITALS: BMI 32.3
--- NOTE | 2024-10-03 12:55 | DI.RAD.S_ITS ---
PROCEDURE: XR DEXA AXIAL SKELETON INDICATIONS: disorders affecting bone density COMPARISON: None. FINDINGS: Lumbar Spine: Bone mineral density 1.121 g/cm2, T score 0.9. Left Femoral Neck: Bone mineral density 0.757 g/cm2, T score -0.8. Left Hip: Bone mineral density 1.105 g/cm2, T score 1.3. Fracture Risk Calculation (when applicable): 10-year fracture risk of a major osteoporotic fracture 5.5 percent and of a hip fracture 0.9 percent. (T score greater or equal to -1.0 to: NORMAL) (T score from -1.1 to -2.4: OSTEOPENIA) (T score less than or equal to -2.5: OSTEOPOROSIS) IMPRESSION: Normal--- recommend repeat DEXA as clinically indicated. Follow-up guidelines as follows: Osteoporosis: Consider a repeat DEXA and Vertebral Fracture Assessment (VFA) exam in 2 years or sooner if medically necessary, to reassess this patient's status. Osteopenia: Consider a repeat DEXA in 2-3 years to reassess this patient's status, or if there is a new clinical indication. Normal: Consider a repeat DEXA in 5 years or sooner, or if there is a new clinical indication. All treatment decisions require clinical judgment and consideration of individual patient factors, including patient preferences, comorbidities, previous drug use, risk factors not captured in the FRAX model (e.g., frailty, falls, vitamin D deficiency, increased bone turnover, interval significant decline in bone density ) and possible under- or over-estimation of fracture risk by FRAX. In addition, the NOF Guide recommends that FDA-approved medical therapies be considered in postmenopausal women and men age >= 50 years with a: * Hip or vertebral (clinical or morphometric) fracture * T-score of <=-2.5 at the spine or hip * Ten-year fracture probability by FRAX of >= 3% for hip fracture or >=20% for major osteoporotic fracture. Dictated by: Cliff Briceno M.D. on 10/03/2024 at 19:30 Approved by: Cliff Briceno M.D. on 10/03/2024 at 19:33
== END ==
LOC: RAD 12:54
PROVIDERS: PCP Family Medicine; Referring Provider Family Medicine; Visit Provider Family Medicine
DX: M85.88 Other specified disorders of bone density and structure, other site (principal); D3A.8 Other benign neuroendocrine tumors; Z79.899 Other long term (current) drug therapy
CPT/HCPCS: 77080

== ENCOUNTER 2025-01-13 13:31 | Emergency (ER) | payer MEDICARE, OTHER, SELFPAY ==
[2018-10-23 13:55] VITALS: BMI 32.3
[2025-01-13] VITALS (7 sets, daily range): BP systolic 147–172; BP diastolic 75–98; PULSE 63–70; RESP 13–18; TEMP 37.1; O2SAT 96–99; BMI 32.6
--- NOTE | 2025-01-13 13:36 | DI.RAD.S_ITS ---
PROCEDURE: XR CHEST 1V INDICATIONS: Chest Pain TECHNIQUE: One view of the chest was acquired. COMPARISON: [facility], CR, XR CHEST 2V, 08/06/2020, 10:59. FINDINGS: Surgical changes and devices: None. Lungs and pleura: Lungs are clear. No pleural effusions or pneumothorax. Mediastinum: Mediastinal contours appear normal. Heart size is normal. Bones and chest wall: No suspicious bony lesions. Overlying soft tissues appear unremarkable. IMPRESSION: No acute cardiopulmonary abnormality is seen. Dictated by: Parth Kate M.D. on 01/13/2025 at 13:55 Approved by: Parth Kate M.D. on 01/13/2025 at 13:55
--- NOTE | 2025-01-13 13:36 | EKG_ITS ---
[place] [address] [address] [address] Test Date: 2025-01-13 Pat Name: Humble Tenorio Department: Room: Gender: Male [employer]: MAXINE : 1955 Requested By: Order Number: [id number] Reading MD: Ho Selby MD Measurements Intervals [place] Rate: 69 P: 7 NV: 174 QRS: 1 QRSD: 80 T: 38 QT: 402 QTc: 430 Interpretive Statements Normal sinus rhythm Electronically Signed On 01-13-2025 16:18:26 PDT by Ho Selby MD
--- NOTE | 2025-01-13 13:58 | PC.NURSE ---
Pt states chest pain happened when he took a deep breath. Also states he had a COVID vaccine Monday. Sent to ED on recommendation of primary provider.
[2025-01-13 14:18] LABS: Add Manual Diff / Slide Review NO; Hematocrit 40.4 % (41-53); Hemoglobin 14.3 g/dL (13.5-17.5); Lymphocytes Absolute Auto 900 /uL (1100-4500); Mean Corpuscular HGB Conc 35.4 % (30-36); Mean Corpuscular Hemoglobin 32.3 PG (26-34); Mean Corpuscular Volume 91.2 fL (80-100); Platelet Count 261 X10^3/uL (150-400)
[2025-01-13 14:23] LABS: INR 1.0 (0.9-1.3); Prothrombin Time 11.8 SECONDS (9.4-12.5)
[2025-01-13 14:25] LABS: PTT Partial Thromboplastin Tim 33 SECONDS (25.1-36.5)
[2025-01-13 14:27] LABS: Alanine Aminotransferase 30 IU/L (<50); Albumin 4.7 g/dL (3.5-5.0); Albumin Globulin Ratio 1.6 (1.0-2.8); Alkaline Phosphatase 83 U/L (38-126); Blood Urea Nitrogen 20 mg/dL (9-20); Calcium 9.0 mg/dL (8.4-10.2); Carbon Dioxide 28 mmol/L (22-32); Chloride 100 mmol/L (98-107); Creatine Kinase 86 U/L (55-170); Estimated Glomerular Filt Rate > 60 mL/min (>60); Globulin 2.9 g/dL (1.7-4.1); Glucose 84 mg/dL (70-99); HEMOLYSIS 16 (0-50); Lipase 58 U/L (23-300); Magnesium 2.0 mg/dL (1.6-2.3); Potassium 3.4 mmol/L (3.4-5.1); Sodium 137 mmol/L (137-145); Total Protein 7.6 g/dL (6.3-8.2)
[2025-01-13 14:39] LABS: NT-proBNP (BNP-Adult 18+) 53 pg/mL (<125); Troponin I < 0.012 ng/mL (0.01-0.034)
[2025-01-13 16:15] LABS: Troponin I < 0.012 ng/mL (0.01-0.034)
[2025-01-13] MEDS: ASPIRIN 81 MG CHEW TAB 324 MG PO (17:34)
--- NOTE | 2025-01-13 18:14 | ED.CHESTPAIN ---
HPI - Chest Pain General Chief Complaint: Chest Pain Stated Complaint: Chest pain pain x 1 day Time Seen by Provider: 01/13/25 15:19 Source: patient Mode of arrival: Ambulatory Limitations: no limitations History of Present Illness HPI narrative: 69-year-old gentleman with a history of hypertension and reflux presents with almost 24 hours of chest pain worse with deep breathing, moving, twisting, lifting his arms above his head. He notes that on the he had an influenza and COVID shot. Symptoms started on the . He has a history of significant reflux with benign gastric neuroendocrine tumor type 5, associated with chronic PPI use and not neoplastic, supposed to avoid nonsteroidals. He did find that Tylenol yesterday was somewhat effective. He was seen on [place], EKG was unremarkable however with complaints of chest pain they did recommend that he come in for more complete evaluation. He has never had similar symptoms, no recent exertional dyspnea or orthopnea. No fevers or chills. Related Data Home Medications ?Medication ?Instructions ?Recorded ?Confirmed saw palmetto-ginsengs 500 mg-500 cap PO DAILY 01/06/21 02/16/21 mg capsule albuterol 90 mcg/actuation aerosol mcg inhalation 01/20/21 02/16/21 inhaler Previous Rx's ?Medication ?Instructions ?Recorded Protonix 20 mg tablet,delayed 40 mg (2 x 20 mg) PO DAILY #90 tabs 01/20/21 release (pantoprazole) bupropion HCl 150 mg tablet,12 hr 150 mg PO QDAY #90 tabs 01/20/21 sustained-release (Wellbutrin SR) losartan 50 mg-hydrochlorothiazide 1 tab PO DAILY #30 tabs 02/16/21 12.5 mg tablet (Hyzaar) Allergies Allergy/AdvReac Type Severity Reaction Status Date / Time No Known Drug Allergies Allergy Verified 10/25/18 13:16 Review of Systems Review of Systems Narrative: Pertinent positive and negative findings as per HPI Patient History Medical History Hearing loss Asthma Allergies Mumps Chicken pox Tinnitus (~2009) Genital warts (~1979) Colon polyps Encounter for wound re-check Bacterial conjunctivitis of both eyes Sore throat Screening for osteoporosis Patient denies medical problems Surgical History Anesthesia History of abdominoplasty History of appendectomy (~2019) Status post endoscopy Status post colonoscopy Family History Father Lung cancer Mother ALS (amyotrophic lateral sclerosis) Grandfather Cancer Grandmother Fall Grandfather Cancer Grandmother Pneumonia Dementia Social History marital status: household members: spouse Smoking Status: Never smoker alcohol intake: current substance use type: does not use Smoking Status: Never smoker alcohol intake frequency: holidays/special occasions only Exam Initial Vital Signs Initial Vital Signs: Vital Signs Temperature 98.8 F 01/13/25 13:36 Pulse Rate 69 01/13/25 13:36 Respiratory Rate 18 01/13/25 13:36 Blood Pressure 154/75 H 01/13/25 13:36 Pulse Oximetry 99 01/13/25 13:36 Oxygen Delivery Method Room Air 01/13/25 13:36 General: Healthy appearing, in no acute distress. Able to give a complete and coherent history. Well-nourished well-developed HEENT: Moist mucous membranes, normal sclera with reactive pupils, Respiratory: Lungs are clear to auscultation, no wheezing no rales no rhonchi, no pleural rub Full and symmetrical air movement Chest: No reproducible tenderness along costochondral margins. Pain is exacerbated with deep breathing. Cardiac: Regular rate and rhythm no murmurs, no pericardial rub Abdomen: Soft, nontender, no rebound or guarding, no flank pain Skin: Warm and dry, no rashes Neurologic: Grossly neurologically intact with no obvious asymmetries or abnormalities Extremities: No trauma, well perfused Psych: Cooperative, appropriate insight and affect Course Orders Ordered: ED Orders 01/13/25 13:36 XR chest 1V Stat EKG-12 Lead Stat 01/13/25 13:45 Complete Blood Count AUTO DIFF Stat Comprehensive Metabolic Panel Stat Lipase Stat Magnesium Stat NT-proBNP (BNP-Adult 18+) Stat PTT Partial Thromboplastin Colten Stat Prothrombin Time INR Stat Troponin & CK Cardiac Panel Stat 01/13/25 15:13 EKG-12 Lead Stat 01/13/25 15:47 Troponin I Stat Discontinued Medications Aspirin (Aspirin 81 Mg Chew Tab) 324 mg PO NOW ONE Stop: 01/13/25 13:36 Last Admin: 01/13/25 17:34 Dose: 324 mg Documented By: KAELYN Vital Signs Vital signs: Vital Signs - 8 hr 01/13/25 13:36 01/13/25 16:57 01/13/25 16:58 Temperature 98.8 F Pulse Rate 69 70 70 Respiratory Rate 18 Blood Pressure 154/75 H Pulse Oximetry 99 99 96 Oxygen Delivery Method Room Air 01/13/25 16:58 01/13/25 17:00 01/13/25 17:00 Temperature Pulse Rate 64 Respiratory Rate 16 Blood Pressure 172/98 H 160/88 H Pulse Oximetry 97 Oxygen Delivery Method MDM - Chest Pain Lab Data 01/13/25 13:45 01/13/25 13:45 Labs: Lab Results 01/13/25 01/13/25 Range/Units 13:45 15:47 WBC 5.7 (4.5-11.0) X10^3/uL RBC 4.43 L (4.5-5.9) X10^6/uL Hgb 14.3 (13.5-17.5) g/dL Hct 40.4 L (41-53) % MCV 91.2 (80-100) fL MCH 32.3 (26-34) PG MCHC 35.4 (30-36) % RDW 13.0 (11.6-14.8) % Plt Count 261 (150-400) X10^3/uL Neut % (Auto) 65.6 (50-75) % Lymph % (Auto) 16.6 L (25-40) % Dougherty % (Auto) 15.5 H (3-14) % Eos % (Auto) 1.3 L (2-4) % Baso % (Auto) 1.0 (0-2) % Neut # (Auto) 3700 (0000-3926) /uL Lymph # (Auto) 900 L (3508-6995) /uL Dougherty # (Auto) 900 (0-900) /uL Eos # (Auto) 100 (0-450) /uL Baso # (Auto) 100 (0-100) /uL PT 11.8 (9.4-12.5) SECONDS INR 1.0 (0.9-1.3) APTT 33 (25.1-36.5) SECONDS Sodium 137 (137-145) mmol/L Potassium 3.4 (3.4-5.1) mmol/L Chloride 100 (98-107) mmol/L Carbon Dioxide 28 (22-32) mmol/L BUN 20 (9-20) mg/dL Creatinine 1.04 (0.66-1.25) mg/dL Estimated GFR > 60 (>60) mL/min BUN/Creatinine Ratio 19.2 (6-22) Glucose 84 (70-99) mg/dL Calcium 9.0 (8.4-10.2) mg/dL Magnesium 2.0 (1.6-2.3) mg/dL Total Bilirubin 0.5 (0.2-1.3) mg/dL AST 28 (17-59) IU/L ALT 30 (<50) IU/L Alkaline Phosphatase 83 (38-126) U/L Total Creatine Kinase 86 (55-170) U/L Troponin I < 0.012 < 0.012 (0.01-0.034) ng/mL NT-Pro-B Natriuret Pep 53 (<125) pg/mL Total Protein 7.6 (6.3-8.2) g/dL Albumin 4.7 (3.5-5.0) g/dL Globulin 2.9 (1.7-4.1) g/dL Albumin/Globulin Ratio 1.6 (1.0-2.8) Lipase 58 (23-300) U/L MDM Narrative Medical decision making narrative: CC: Central chest pain worse with moving twisting and breathing for 24 hours Complicating co-morbidities: Influenza and COVID vaccines 24 hours prior to onset of symptoms, hypertension, reflux, lowest nuclear medicine study in 2020 Data collected from: patient Medical records reviewed: Myocardial perfusion scan nuclear medicine study July 2020: CONCLUSION: I will call this study a normal myocardial perfusion study with normal myocardial perfusion during stress supine and stress prone images. No convincing ischemia or infarction pattern seen. Diminished exercise tolerance. Functional aerobic impairment positive 7 percent. Mildly hypertensive blood pressure response. No anginal symptoms. The patient felt significant dyspnea at peak exercise. Overall left ventricular function is preserved. Humble Tenorio - CLAY/natty/priscilla doc#: [id number]/job#: [id number] dd: 08/06/2020 16:38:00 dt: 08/06/2020 18:45:00 DICTATING MD/COPIES TO: Singh Newberry MD Differential considered: Acute coronary syndrome, reflux, pneumothorax, costochondritis, pericarditis, myocarditis, pneumothorax, pleurisy, inflammatory response due to immunizations Exam documented above, pertinent findings include: Pain is not reproducible with palpation but is reproducible with deep breathing and torso twisting. Remainder of exam is benign Lab Test results independently reviewed as above. Pertinent findings: CBC is reassuring Chemistries are unremarkable Troponin x2 are negative Independently reviewed EKG: EKG shows sinus rhythm at a rate of 69 with no acute ischemic Imaging studies independently reviewed: Chest x-ray is unremarkable Treatments: TOradol Discussion: 69-year-old gentleman inflammatory/pleuritic type central chest pain worse with deep breathing central twisting and lifting his arms. Cardiac workup is unremarkable. His heart score is 3. I do not suspect life-threatening etiology this time, we discussed single dose of Toradol to help with symptoms this evening and likely correlation with brisk immunologic and inflammatory response secondary to his immunizations on Monday. There was no indication for advanced imaging, hospitalization or continued workup. Questions are answered and he is safely discharge Discharge Plan Departure Patient Disposition: Home Clinical Impression: Atypical chest pain Instructions: DI for Atypical Chest Pain, DI for Pleurisy Activity Restrictions/Additional Instructions: Thank you for coming in today I do believe that coming all the way and [place] for further workup was absolutely appropriate. There is no sign of infection, anemia, your kidney function liver function is entirely appropriate. Your EKG is completely normal, we did to test in a row to make sure that you were not having any acute heart issues, a troponin, these turned out normal. Your chest x-ray was equally reassuring. Given the fact that your pain is with twisting turning bending and lifting your arms this is most likely a musculoskeletal type pain. Given the fact that it started 24 hours after your flu and influenza shots you likely are having some increased inflammation all over from the immunizations. This is a very good sign that the immunizations are going to be very effective for you. In the emergency department you were given a dose of Toradol to help with pain overall. You can continue to use Tylenol as needed and I would expect symptoms to improve over the next 5-7 days. If you find that you are getting worse or develop any new symptoms, please feel free to return to the emergency department for further evaluation. Prescriptions: No Action albuterol 90 mcg/actuation aerosol inhalation pantoprazole [Protonix] 20 mg tablet,delayed release (DR/EC) 40 mg PO DAILY Qty: 90 4RF bupropion HCl [Wellbutrin SR] 150 mg tablet sustained-release 12 hr 150 mg PO QDAY Qty: 90 4RF saw palmetto-ginsengs 500-500 mg capsule PO DAILY losartan-hydrochlorothiazide [Hyzaar] 50-12.5 mg tablet 1 tab PO DAILY Qty: 30 11RF Referrals: Malathi Anton MD [Primary Care Provider, Family Practice] Stand Alone Forms: Patient Portal/API
[2025-01-13] MEDS: KETOROLAC 30 MG/ML VIAL 15 MG IV (18:40)
== END 2025-01-13 18:51 | disposition home or self-care (01) ==
PROVIDERS: Emergency Medicine; Emergency Provider Emergency Medicine; PCP Family Medicine
DX: R07.89 Other chest pain (principal)
CPT/HCPCS: 36415; 71045; 80053; 82550; 83690; 83735; 83880; 84484; 85025; 85610; 85730; 93005; 96374; 99284; J1885